=== PATIENT | female | born 1975 | race Hispanic/Latino ===

== ENCOUNTER 2017-04-26 09:15 | Emergency (ER) | payer OTHER ==
[2017-04-26] MEDS ORDERED: Ketorolac 30 MG/ML SDV IVPUSH ONE (09:18)
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
--- NOTE | 2017-04-26 09:50 | CT ---
EXAMINATION: CT cervical spine without contrast HISTORY: Pain COMPARISON: None TECHNIQUE: Axial CT images obtained through the cervical spine without contrast. Coronal and sagittal reconstructions obtained. FINDINGS: The cervical spinal alignment is normal. The vertebral body heights and disc spaces appear well-maintained. Bone mineralization is normal. The lung apices are clear. No bulky cervical lymphade nopathy. IMPRESSION: No acute cervical spinal abnormality identified.
[2017-04-26] MEDS ORDERED: Ketorolac 60 MG/2 ML SDV IM ONE (10:05)
--- NOTE | 2017-04-26 10:06 | CR ---
EXAMINATION: Portable chest radiograph. HISTORY: Shortness of breath. FINDINGS: The trachea is midline. The cardiomediastinal silhouette is within normal limits. No pulmonary infilt rates, effusions or pneumothorax. Trauma board obscures fine detail. Osseous structures appear unremarkable. IMPRESSION: No acute cardiopulmonary process.
--- NOTE | 2017-04-26 10:08 | CR ---
EXAMINATION: Pelvis and lumbar spine HISTORY: Pain COMPARISON: None TECHNIQUE: AP pelvis and 2 views of the lumbar spine FINDINGS: The lumbar spinal alignment is normal. The vertebral body heights and disc spaces appear ma intained. Bone mineralization and normal. SI joints are symmetric. Iliopectineal lines are preserved. Hip joint spaces appear normal. IMPRESSION: No acute osseous abnormality identified.
[2017-04-26 10:22] LABS: CHLORIDE,CL 107 mmol/L (98-110); SODIUM,NA 140 mmol/L (136-146)
== END 2017-04-26 10:23 | disposition home or self-care (01) ==
LOC: MW.ED 09:15
DX: M62.838 Other muscle spasm (principal); M54.5 Low back pain; V89.2XXA Person injured in unspecified motor-vehicle accident, traffic, initial encounter; Y92.410 Unspecified street and highway as the place of occurrence of the external cause
CPT/HCPCS: 36415; 71045; 72100; 72125; 72170; 80048; 85025; 99284; G0480